=== PATIENT | female | born 1990 | race Caucasian/White ===

== ENCOUNTER 2016-10-17 10:54 | Emergency (ER) | payer MEDICAID ==
[~2016-10-17] VITALS: Ht 162.6 cm; Wt 54.4 kg
[~2016-10-17 10:54] MED LIST: CITA20TA7 PO; ETHI1TAB16 PO; HYDR-757 PO
--- OUTSIDE RECORDS SUMMARY | 2016-10-17 10:58 | XMS REPORT | Continuity of Care Document ---
Author Author [facility] Organization [facility] Address Unknown Phone Unavailable Care Team Providers Care Agent Ticketing Gate Name Role Phone NO, LOCAL PHYSICIAN PCP Unavailable Insurance Providers Payer Name Policy Number Subscriber Name Relationship Unknown Advance Directives Directive Response Recorded Date/Time Advance Directives No 10/09/16 6:45pm Resuscitation Status Full Code 10/09/16 6:45pm Chief Complaint and Reason for Visit Chief Complaint Lower Extremity Reason for Visit Ankle sprain Problems Active Problems Medical Problem Onset Date Status Ankle sprain Unknown Acute Medications Current Home Medications Medication Dose Units Route Directions Days/Qty Instructions Start Date Citalopram Hydrobromide 20 Mg 20 Mg Oral Daily 30 10/09/16 Ethinyl Estradiol/Drospirenone 1 Each 1 Tab Oral Daily 84 10/09/16 Hydrocodone/Acetaminophen 1 Each 1 Each Oral Every 4HRS as needed for Pain 10 10/09/16 Social History Social History Problem Response Recorded Date/Time Alcohol Use Denies Use 10/09/2016 6:45pm Recreational Drug Use No 10/09/2016 6:45pm Recent Foreign Travel No 10/09/2016 5:26pm Recent Infectious Disease Exposure No 10/09/2016 5:26pm Smoking Status Never a Smoker 10/09/2016 6:45pm Recent Hopitalizations No 10/09/2016 6:45pm Query Response Start Date Stop Date Smoking Status Never a Smoker Hospital Discharge Instructions No hospital discharge instructions. Plan of Care Discharge Date 10/09/16 7:39pm Disposition 01 HOME, SELF-CARE Condition at Discharge Stable Instructions/Education Provided Ankle Sprain (DC) Forms Provided Work Release Form Prescriptions See Medication Section Referrals NO,LOCAL PHYSICIAN - Primary Care Physician Additional Instructions/Education 1. Keep this elevated with an ice pack on it for the next 24-48 hours as much as possible 2. Use the crutches as needed for pain when walking 3. Expect pain continue for about a week. After your prescribed pain medication runs out use plain Tylenol and Motrin 4. Follow-up with your doctor at the end of next week if you're having persistent pain All discharge instructions reviewed with patient and/or family. Voiced understanding. Functional Status No functional status results. Allergies, Adverse Reactions, Alerts No known allergies. Immunizations No immunization records. Vital Signs Acute Vital Signs Vital Response Date/Time Temperature (Fahrenheit) 96.6 degrees F (97.6 - 99.5) 10/09/2016 5:26pm Temperature (Calculated Celsius) 35.32704 degrees C (36.4 - 37.5) 10/09/2016 5:26pm Temperature Source Tympanic 10/09/2016 5:26pm Pulse Rate (adult) 80 bpm (60 - 90) 10/09/2016 5:26pm Respiratory Rate 16 bpm (12 - 24) 10/09/2016 5:26pm Blood Pressure 106/63 mm Hg 10/09/2016 5:26pm Blood Pressure Mean 77 mm Hg 10/09/2016 5:26pm Pain Numeric Pain Scale 6 10/09/2016 7:32pm Height (Feet) 5 feet 10/09/2016 5:26pm Height (Inches) 4 inches 10/09/2016 5:26pm Height (Calculated Centimeters) 162.826879 cm 10/09/2016 5:26pm Weight (Pounds) 120 pounds 10/09/2016 5:26pm Weight (Calculated Kilograms) 54.539777 kilograms 10/09/2016 5:26pm Capillary Refill Capillary Refill Less Than 3 Seconds 10/09/2016 5:26pm Height 5 ft 4 in Weight 120 lb Body Mass Index 20.6 kg/m^2 Results No known relevant diagnostic tests, laboratory data and/or discharge summary. Procedures No known history of procedures. Encounters Encounter Location Arrival/Admit Date Discharge/Depart Date Attending Provider Departed Emergency Room [facility] 10/09/16 4:42pm 10/09 7:39pm ALICIA RUANO APRN Recent Diagnosis
--- NOTE | 2016-10-17 11:46 | Diagnostic Imaging Report ---
INDICATION: Ankle pain Comparison: October 09, 2016 Technique: 3 radiographs of the right ankle dated October 17, 2016 Findings: No evidence of acute fracture or dislocation. No destructive osseous process. Talar dome is unremarkable. Ankle mortise is symmetric. Mild soft tissue swelling, slightly improved from the prior examination. IMPRESSION: Soft tissue swelling about the ankle, particularly laterally. This appears improved from the prior examination. No acute osseous abnormality. Dictated by: Dictated on workstation # [id number]
--- NOTE | 2016-10-17 12:01 | ED Lower Extremity ---
General Chief Complaint: Lower Extremity Stated Complaint: R ANKLE PAIN/SWELLING Nursing Triage Note: ON OCT 09 SPRAINED R ANKLE WAS GIVEN GIOVANI AND CRUTCHES AND TOLD TO FOLLOW UP WITH PCP IF NOT ANY BETTER BACK HERE BECAUSE CON'T TO HAVE PAIN WHEN WALKING. AND NO PCP TO FOLLOW UP WITH. Nursing Sepsis Screen: No Definite Risk Source: patient Exam Limitations: no limitations History of Present Illness Time seen by provider: 12:01 Initial Comments 25 yo female patient presents to the emergency department for f/u of rt ankle sprain. Patient was seen October 09 in the emergency department with diagnosis of ankle sprain. Patient reports continued swelling. Denies reinjury. States she has been using her crutches and Giovani wrap. Does not have a primary care physician. Onset: last week Pain/Injury Location: right ankle Method of Injury: twisted Allergies and Home Medications Allergies Coded Allergies: No Known Drug Allergies (Unverified , 10/09/16) Home Medications Citalopram Hydrobromide 20 Mg Tablet #30 20 MG PO DAILY (Reported) Ethinyl Estradiol/Drospirenone 1 Each Tablet #84 1 TAB PO DAILY (Reported) Hydrocodone/Acetaminophen 1 Each Tablet #10 1 EACH PO Q4H PRN PRN PAIN Prescribed by: ALICIA RUANO on 10/09/161931 Constitutional: no symptoms reported Respiratory: no symptoms reported Cardiovascular: no symptoms reported Musculoskeletal: see HPI joint pain (rt ankle) joint swelling (rt ankle) Skin: change in color (rt ankle ecchymosis.) Psychiatric/Neurological: Denies Numbness, Denies Paresthesia, Denies Tingling , Denies Weakness All Other Systems Reviewed Negative Unless Noted: Yes (Negative excepted noted.) Past Woxnyft-Qnwfss-Wfarkn Hx Patient Social History Recent Foreign Travel: No Contact w/Someone Who Travel: No Recent Infectious Disease Expo: No Recent Hopitalizations: No Seasonal Allergies Seasonal Allergies: No Surgeries HX Surgeries: No Respiratory Hx Respiratory Disorders: No Cardiovascular Hx Cardiac Disorders: No Neurological Hx Neurological Disorders: No Gastrointestinal Hx Gastrointestinal Disorders: No Musculoskeletal Hx Musculoskeletal Disorders: Yes (recent rt ankle sprain.) Reviewed Nursing Assessment Reviewed/Agree w Nursing PMH: Yes Family Medical History Significant Family History: No Pertinent Family Hx Physical Exam Vital Signs Vital Sign - Last 12Hours 10/17/16 11:04 Temp 98.1 Pulse 86 Resp 18 B/P 119/79 Pulse Ox 98 O2 Delivery Room Air Capillary Refill : Less Than 3 Seconds General Appearance: WD/WN no apparent distress Cardiovascular: normal peripheral pulses no edema Knees: bilateral knee non-tender, bilateral knee normal inspection, bilateral knee normal range of motion, bilateral knee no evidence of injury Ankles: left ankle non-tender, left ankle normal inspection, left ankle normal range of motion, left ankle no evidence of injury, right ankle limited range of motion, right ankle pain, right ankle soft tissue tenderness, right ankle swelling Feet: bilateral foot non-tender, bilateral foot normal inspection, bilateral foot normal range of motion, bilateral foot no evidence of injury Neurologic/Tendon: normal sensation normal motor functions normal tendon functions responds to pain no evidence tendon injury Neurologic/Psychiatric: no motor/sensory deficits alert normal mood/affect oriented x 3 Skin: normal color warm/dry ecchymosis ((rt lateral ankle)) Progress/Results/Core Measures Results/Orders My Orders Orders-DON MARIEE Ankle, Right, 3 Views (10/17/16 11:28) Vital Signs/I&O Vital Sign - Last 12Hours 10/17/16 11:04 Temp 98.1 Pulse 86 Resp 18 B/P 119/79 Pulse Ox 98 O2 Delivery Room Air Blood Pressure Mean: 92 Diagnostic Imaging Diagonstic Imaging: Xray Plain Films/CT/US/NM/MRI: ankle (rt) Comments Findings: No evidence of acute fracture or dislocation. No destructive osseous process. Talar dome is unremarkable. Ankle mortise is symmetric. Mild soft tissue swelling, slightly improved from the prior examination. IMPRESSION: Soft tissue swelling about the ankle, particularly laterally. This appears improved from the prior examination. No acute osseous abnormality. Dictated on workstation # [id number] Reviewed: Reviewed by Me (radiology report reviewed by me) Departure Communication Progress Notes Diagnostic findings discussed with the patient. Plan for discharge to home. Patient reports she still has hydrocodone at home. Refuses pain medication at this time. Return precautions were discussed with the patient. Patient voices understanding and agrees with the treatment plan. Patient case discussed with Dr. Stanley, he agrees with the plan of care. Impression Impression: Primary Impression: Ankle sprain Qualified Code: S93.411D - Sprain of calcaneofibular ligament of right ankle, subsequent encounter Disposition: HOME, SELF-CARE Condition: Improved Departure-Patient Inst. Decision time for Depature: 12:09 Referrals: NO,LOCAL PHYSICIAN (PCP/Family) Primary Care Physician Patient Instructions: Ankle Sprain (DC) Add. Discharge Instructions: All discharge instructions reviewed with patient and/or family. Voiced understanding. Continue home medications. Ibuprofen 800 mg by mouth every 8 hours as needed for pain. Alternate ice packs and heating pad as needed for pain. Activity as tolerated. Giovani wrap as instructed. Follow-up with your primary care of choice if no improvement in symptoms. Return to the emergency department for worsened symptoms or any other concerns. Scripts [ASO ankle brace] No Conflict Check #1 EA XX NEEDED PRN PAIN Ref 0 Prov:DON MARIEE 10/17/16 Work/School Note: Local Medical Staff Listing DON MARIEE Oct 17, 2016 12:01
[2016-10-17] MEDS ORDERED: [UNRECOGNIZED DRUG - SUPPLY] XX (12:13)
[2016-10-17 12:20] VITALS: BP 119/79
== END 2016-10-17 12:19 | disposition home or self-care (01) ==
LOC: EDUNIT# 10:54 → ER 10:55
DX: S93.401D Sprain of unspecified ligament of right ankle, subsequent encounter (principal)
CPT/HCPCS: 73610

== ENCOUNTER 2020-02-24 21:12 | Outpatient (CLI) | payer BC ==
[~2020-02-24] VITALS: Ht 165.6 cm; Wt 64.9 kg
[~2020-02-24 21:12] MED LIST changes: -CITA20TA7 PO; +CITA20TA9 PO; +HYDR-4226 PO; -HYDR-757 PO; +[UNRECOGNIZED DRUG - SUPPLY] XX
--- NOTE | 2020-02-24 21:20 | NUR ---
CONSTANCEBARB Kong presented to unit via AMBULATION from HOME/ED, accompanied by SO, with c/o DECREASED MOVEMENT. BARB NOLASCO Dilan weighed, gowned, voided, and to bed. EFHM and TOCO applied, VS taken. TERESA NOLASCOA Dilan oriented to bed controls, call light, TV, heat, and A/C controls.
[2020-02-24] MEDS ORDERED: BUSP10TA95 PO (21:35)
[2020-02-24] MEDS ORDERED: PREN-142 PO (21:35)
[2020-02-24 21:40] VITALS: BP 103/72
[2020-02-24 21:41] VITALS: BP 103/72
--- NOTE | 2020-02-24 21:58 | NUR ---
D/C instructions given & explained, pt. verbalized understanding & signed, copy of D/C instructions to pt. Pt. left WS ambulatory, to home via private vehicle escorted by SO.
--- NOTE | 2020-02-25 09:13 | Physician Query-Final Dx ---
Clinic Account Progress/Dx Physician Query: Please give diagnosis Please include # weeks gestation Date of Service February 24, 2020 at 21:12 SKY MARI February 25, 2020 09:13
== END 2020-02-24 21:58 | disposition home or self-care (01) ==
LOC: LDRP 21:12 → WSo 21:12
PROVIDERS: ATTEND Obstetrics & Gynecology
DX: O36.8120 Decreased fetal movements, second trimester, not applicable or unspecified (principal); Z3A.26 26 weeks gestation of pregnancy
CPT/HCPCS: 99212

== ENCOUNTER 2020-04-19 15:56 | Outpatient (CLI) | payer BC ==
[~2020-04-19 15:56] MED LIST changes: +BUSP10TA95 PO; +PREN-142 PO
--- NOTE | 2020-04-19 16:05 | NUR ---
BARB NOLASCO presented to unit via from ED, accompanied by s/o, with c/o LEAKING FLUID. BARB NOLASCO weighed, gowned, voided, and to bed. EFHM and TOCO applied, VS taken. BARB NOLASCO oriented to bed controls, call light, TV, heat, and A/C controls.
[2020-04-19 16:28] VITALS: BP 113/72
--- NOTE | 2020-04-19 16:41 | NUR ---
DR. ZHONG NOTIFIED OF PT'S ARRIVAL, C/O, AMNIO NEGATIVE, SVE, REVIEW OF STRIP, URINE DIPSTICK RESULTS. ORDERS RECEIVED FOR DISCHARGE HOME AND TO KEEP APPOINTMENT FOR NEXT WEEK.
--- NOTE | 2020-04-19 16:49 | NUR ---
DISCHARGE PAPERS PROVIDED AND REVIEWED WITH PT AND S/O. PT VERBALIZES UNDERSTANDING AND DENIES ANY QUESTIONS AT THIS TIME. PAPER SIGNED.
--- NOTE | 2020-04-19 16:55 | NUR ---
PT DISCHARGED FROM [facility] TO [facility]IA AMBULATORY IN STABLE CONDITION ACC BY S/O.
--- NOTE | 2020-04-21 08:27 | Physician Query-Final Dx ---
SKY MARI 04/21/20 0827: Clinic Account Progress/Dx Physician Query: Please give diagnosis Please include # weeks gestation Date of Service Apr 19, 2020 at 15:56 JOSEPH HZONG DO 04/21/20 1235: Clinic Account Progress/Dx Physician Query: Please give diagnosis DIAGNOSIS: Diagnosis Intrauterine at 35 5/7 weeks 2. Leaking Fluid 3. Threatened Labor SKY MARI Apr 21, 2020 08:27 JOSEPH ZHONG DO Apr 21, 2020 12:35
== END 2020-04-19 16:55 | disposition home or self-care (01) ==
LOC: LDRP 15:56 → WSo 15:56
PROVIDERS: ATTEND Obstetrics & Gynecology
DX: O42.913 Preterm premature rupture of membranes, unspecified as to length of time between rupture and onset of labor, third trimester (principal); O47.03 False labor before 37 completed weeks of gestation, third trimester; Z3A.35 35 weeks gestation of pregnancy
CPT/HCPCS: 99214

== ENCOUNTER 2020-05-01 21:39 | Outpatient (CLI) | payer BC ==
[~2020-05-01] VITALS: Ht 162.6 cm; Wt 67.0 kg
--- NOTE | 2020-05-01 21:45 | NUR ---
BARB NOLASCO presented to unit via ambulation from ED, accompanied by , with c/o CONTRACTIONS. BARB NOLASCO weighed, gowned, voided, and to bed. EFHM and TOCO applied, VS taken. BARB NOLASCO oriented to bed controls, call light, TV, heat, and A/C controls.
[2020-05-01 22:09] LABS: BILIRUBIN,URINE NEGATIVE (NEGATIVE); CLARITY,URINE CLEAR; COLOR,URINE YELLOW; GLUCOSE, URINE (UA) NEGATIVE (NEGATIVE); KETONES,URINE NEGATIVE (NEGATIVE); LEUKOCYTE ESTERASE ,URINE TRACE (NEGATIVE); NITRITE,URINE NEGATIVE (NEGATIVE); PH,URINE 8.5 (5-9); PROTEIN,URINE NEGATIVE (NEGATIVE)
[2020-05-01 22:17] LABS: AMORPHOUS SEDIMENT,UR FEW AMOR PHOSPHATE /LPF; BACTERIA,URINE TRACE /HPF
[2020-05-01 22:54] VITALS: BP 117/75
--- NOTE | 2020-05-01 23:17 | NUR ---
Discharge instructions discussed with pt and s.o. Pt denies any questions or concerns. Signature sheet signed, placed on chart. Offered wheelchair, denied per pt. Pt ambulating off unit at time to private vehicle with s.o. at side. No signs of distress noted.
== END 2020-05-01 23:17 | disposition home or self-care (01) ==
LOC: LDRP 21:39 → WSo 21:39
PROVIDERS: ATTEND Obstetrics & Gynecology
DX: O62.9 Abnormality of forces of labor, unspecified (principal); Z3A.37 37 weeks gestation of pregnancy
CPT/HCPCS: 81000; G0463; 99213

== ENCOUNTER 2020-05-05 12:48 | Inpatient (IN) | payer BC ==
[2020-05-05] VITALS (27 sets, daily range): BP systolic 98–132; BP diastolic 54–86
[~2020-05-05] VITALS: Ht 162 cm; Wt 67.4 kg
--- NOTE | 2020-05-05 12:52 | NUR ---
BARB NOLASCO presented to unit via from ED, accompanied by S/O, with c/o CONTRACTIONS. BARB NOLASCO weighed, gowned, voided, and to bed. EFHM and TOCO applied, VS taken. BARB NOLASCO oriented to bed controls, call light, TV, heat, and A/C controls.
[2020-05-05 13:32] LABS: BILIRUBIN,URINE NEGATIVE (NEGATIVE); CLARITY,URINE CLEAR; COLOR,URINE YELLOW; GLUCOSE, URINE (UA) NEGATIVE (NEGATIVE); KETONES,URINE 1+ (NEGATIVE); LEUKOCYTE ESTERASE ,URINE TRACE (NEGATIVE); NITRITE,URINE NEGATIVE (NEGATIVE); PROTEIN,URINE NEGATIVE (NEGATIVE)
[2020-05-05 13:41] LABS: BACTERIA,URINE TRACE /HPF
--- NOTE | 2020-05-05 14:22 | NUR ---
DR. ZHONG NOTIFIED OF PT'S ARRIVAL, C/O, SVE X2, REVIEW OF STRIP. NEW ORDERS RECEIVED AND WILL BE IN TO SEE PT LATER THIS AFTERNOON.
[2020-05-05] MEDS ORDERED: D5 LR IV SOLUTION 1,000 ML IV ONE (15:19)
[2020-05-05] MEDS ORDERED: OXYTOCIN PRE-MIX DRIP 500 ML IV ONE (15:19)
[2020-05-05] MEDS ORDERED: D5 LR IV SOLUTION 1,000 ML IV SCH (15:40)
[2020-05-05] MEDS ORDERED: AMPICILLIN FOR IV USE 2,000 MG in WATER (STERILE) FOR INJECTION 14.8 ML IV SCH (15:40)
[2020-05-05] MEDS ORDERED: LACTATED RINGERS 1,000 ML IV SCH (15:45)
--- NOTE | 2020-05-05 15:54 | History & Physical-OB/GYN ---
History of Present Illness History of Present Illness Reason for visit/HPI Ms. Reynoso, A1 at 38 weeks gestation presented to the hospital with the onset of contractions. Date of Admission May 05, 2020 Date Seen by a Provider: May 05, 2020 Time Seen by a Provider: 15:40 I consulted on this patient on 05/05/20 15:47 Attending Physician Luis Miguel Gibbons DO Admitting Physician Luis Miguel Gibbons DO Consult Allergies and Home Medications Allergies Coded Allergies: No Known Drug Allergies (Unverified , 10/09/16) Home Medications Buspirone HCl 10 Mg Tablet, 10 MG PO BID, (Reported) Vit No.124/Iron/FA 1 Each Tablet, 1 EACH PO DAILY, (Reported) Patient Home Medication List Home Medication List Reviewed: Yes Past Jpuzedt-Llbbxe-Fzgdrd Hx Patient Social History Marrital Status: single Number of Children: 3 Number of living children: 3 Employed/Student: employed Alcohol Use: Denies Use Recreational Drug Use: No Smoking Status: Never a Smoker 2nd Hand Smoke Exposure: No Recent Foreign Travel: No Contact w/other who traveled: No Recent Hopitalizations: No Seasonal Allergies Seasonal Allergies: No Surgeries No Respiratory No Cardiovascular No Neurological No Reproductive System Expected Date of Delivery: May 19, 2020 Hx : 5 Hx Para: 3 Hx Total # of Abortions (Spona: 1 Genitourinary No Gastrointestinal No Musculoskeletal No Endocrine History of Endocrine Disorders: No HEENT History of HEENT Disorders: No Cancer No Psychosocial History of Psychiatric Problem: Yes Behavioral Health Disorders: Depression Integumentary History of Skin or Integumenta: No Blood Transfusions History of Blood Disorders: No Family Medical History Significant Family History: No Pertinent Family Hx Review of Systems Constitutional: see HPI Physical Exam Physical Exam Vital Signs Vital Signs Date Time Temp Pulse Resp B/P (MAP) Pulse Ox O2 Delivery O2 Flow Rate FiO2 05/05/20 14:11 37.1 97 18 100 Room Air 05/05/20 14:00 37.1 97 18 100 Room Air 05/05/20 13:11 37.1 97 18 112/78 (89) 100 Room Air Capillary Refill : Less Than 3 Seconds Labs Laboratory Tests 05/05/20 13:15: Urine Color YELLOW, Urine Clarity CLEAR, Urine pH 8.0, Urine Specific [place] 1.015L, Urine Protein NEGATIVE, Urine Glucose (UA) NEGATIVE, Urine Ketones 1+H, Urine Nitrite NEGATIVE, Urine Bilirubin NEGATIVE, Urine Urobilinogen 0.2, Urine Leukocyte Esterase TRACEH, Urine RBC (Auto) TRACE-L, Urine RBC 5-10H, Urine WBC 2-5, Urine Squamous Epithelial Cells 2-5, Urine Crystals NONE, Urine Bacteria TRACE, Urine Casts NONE, Urine Mucus NEGATIVE, Urine Culture Indicated NO General Appearance: No Apparent Distress Respiratory: Chest Non Tender, Lungs Clear, Normal Breath Sounds Cardiovascular: Regular Rate, Rhythm, No Edema Abdominal: normal bowel sounds, non tender, soft Labia: WNL Vagina: WNL Cervix: WNL Cervix OS: open (Cervix 1.5 cm/90%/-3 Vertex/Intact) Uterus: WNL, Enlarged (Gravid) Extremity: Normal Inspection, Non Tender, No Calf Tenderness Assessment/Plan Assessment and Plan Assessment: Intrauterine at 38 weeks--onset of labor 2. GBS Positive Plan: Augment labor with Pitocin. AROM. Ampicillin IV for GBS prophylaxis. Epidural for antepartum pain management. Admission Diagnosis Admission Status: Inpatient Order (span 2 midnights) Reason for Inpatient Admission: Active labor--vaginal delivery expected LUIS MIGUEL GIBBONS DO May 05, 2020 15:54
[2020-05-05 16:08] LABS: BASOPHILS % (AUTO) 0 % (0-10); EOSINOPHILS # (AUTO) 0.1 10^3/uL (0.0-0.3); EOSINOPHILS % (AUTO) 1 % (0-10); HEMATOCRIT 27 % (35-52); HEMOGLOBIN 8.6 G/DL (11.5-16.0); LYMPHOCYTES # (AUTO) 1.7 X 10^3 (1.0-4.0); LYMPHOCYTES % (AUTO) 18 % (12-44); MEAN CORPUSCULAR HEMOGLOBIN 25 PG (25-34); MEAN CORPUSCULAR HGB CONC 32 G/DL (32-36); MEAN CORPUSCULAR VOLUME 78 FL (80-99); MEAN PLATELET VOLUME 9.9 FL (7.4-10.4); MONOCYTES # (AUTO) 0.8 X 10^3 (0.0-1.0); MONOCYTES % (AUTO) 8 % (0-12); NEUTROPHILS # (AUTO) 7.2 X 10^3 (1.8-7.8); NEUTROPHILS % (AUTO) 73 % (42-75); PLATELET COUNT 320 10^3/uL (130-400); RED CELL DISTRIBUTION WIDTH 13.7 % (10.0-14.5); WHITE BLOOD COUNT 9.8 10^3/uL (4.3-11.0)
[2020-05-05] MEDS ORDERED: fentaNYL 2 mcg/ml BUPIVA 0.125 100 ML ONE (16:20)
[2020-05-05] MEDS ORDERED: fentaNYL INJECTION 100 MCG/2 ML AMP ONE (16:25)
[2020-05-05] MEDS ORDERED: LACTATED RINGERS 1,000 ML IV ONE ×2 (16:26)
[2020-05-05] MEDS ORDERED: EPIDURAL (fentaNYL 2 MCG/ML BUPIVA 0.125%)100 ML BAG EPI PRN (16:30)
[2020-05-05] MEDS ORDERED: ONDANSETRON 4 MG/2 ML (SDV) Z0FRAN IV PRN (16:30)
[2020-05-05] MEDS ORDERED: NALOXONE 0.4 MG/ML 1 ML (NARCAN) VIAL IV PRN (16:30)
[2020-05-05] MEDS ORDERED: WATER (STERILE) FOR INJECTION 20 ML ONE (16:30)
[2020-05-05] MEDS ORDERED: BUPIVACAINE 0.25% 30 ML (SENSORCAINE) VIAL ONE (16:47)
[2020-05-05] MEDS ORDERED: LIDOCAINE PF 2% 5 ML (XYLOCAINE) VIAL ONE (16:47)
[2020-05-05] MEDS ORDERED: OXYTOCIN PRE-MIX DRIP 500 ML IV SCH (18:10)
[2020-05-05] MEDS ORDERED: MEASLES,MUMPS,RUBELLA 1 EA INJ SQ ONE (18:15)
[2020-05-05] MEDS ORDERED: WITCH HAZEL(TUCKS) 40 EA JAR TOP PRN (18:15)
[2020-05-05] MEDS ORDERED: TETANUS,DIPTH,PERTUSS P/F (BOOSTRIX) 0.5 ML VIAL IM ONE (18:15)
[2020-05-05] MEDS ORDERED: BENZOCAINE/MENTHOL (DERMOPLAST) 60 ML CAN TP PRN (18:15)
[2020-05-05] MEDS ORDERED: DIBUCAINE (NUPERCAINAL) 1% OINT 30 GM TOP PRN (18:15)
--- NOTE | 2020-05-05 18:17 | OB Labor & Delivery Record ---
Vag Delivery Note Vag Delivery Note Date of Delivery: 05/05/20 Preoperative Diagnosis: Lois Reynoso is a (29 /Para 5 / 3, Gestational Age (wks)38 and GBS Positive Postoperative Diagnosis: Same Surgeon: JOSEPH ZHONG Bezel Cutter: [None] Anesthesia: [Epidural] Delivery Type: [Normal Spontaneous Vaginal Delivery] Findings: [A female in CJ position] Viable [female] infant, apgars [7, 8], weight [6 lbs 1 oz] Lacerations: None Intact placenta with 3 vessel cord. No nuchal cord, body cord or shoulder dystocia Estimated Blood Loss: [300] ml Complications: Tight nuchal cord x 1, doubly clamped and cut Condition: Stable Description of Procedure: The patient is a 29 year old female who presented [with the onset of contractions]. She was admitted and informed consent was obtained. Her labor course was remarkable for [Pitocin Augmentation and AROM] She progressed to complete dilatation and began to push. She was then set up for delivery. The 's head was delivered atraumatically in the [CJ] position. Tight Nuchal Cord was noted--doubly clamped and cut. The shoulders and remainder of the infant's body were then delivered without difficulty. Upon delivery, the head was held below the level of the perineum and the mouth and nares were bulb suctioned. The infant was handed off to the pediatric staff where NRP protocol was followed. An intact placenta with 3- vessel cord delivered via Augie and there was found to be minimal bleeding.~ Vigorous fundal massage was performed and the fundus was found to be firm. IV oxytocin was given. Examination of the vagina and perineum revealed no lacerations. Following the repair, sponge, instrument and needle counts were correct. Mom and baby were both in stable condition in the labor suite. Vitals - Labs Vital Signs - I&O Vital Signs Date Time Temp Pulse Resp B/P (MAP) Pulse Ox O2 Delivery O2 Flow Rate FiO2 05/05/20 14:11 37.1 97 18 100 Room Air 05/05/20 14:00 37.1 97 18 100 Room Air 05/05/20 13:11 37.1 97 18 112/78 (89) 100 Room Air Labs Laboratory Tests 05/05/20 13:15: Urine Color YELLOW, Urine Clarity CLEAR, Urine pH 8.0, Urine Specific [place] 1.015L, Urine Protein NEGATIVE, Urine Glucose (UA) NEGATIVE, Urine Ketones 1+H, Urine Nitrite NEGATIVE, Urine Bilirubin NEGATIVE, Urine Urobilinogen 0.2, Urine Leukocyte Esterase TRACEH, Urine RBC (Auto) TRACE-L, Urine RBC 5-10H, Urine WBC 2-5, Urine Squamous Epithelial Cells 2-5, Urine Crystals NONE, Urine Bacteria TRACE, Urine Casts NONE, Urine Mucus NEGATIVE, Urine Culture Indicated NO 05/05/20 15:59: White Blood Count 9.8, Red Blood Count 3.46L, Hemoglobin 8.6L, Hematocrit 27L, Mean Corpuscular Volume 78L, Mean Corpuscular Hemoglobin 25, Mean Corpuscular Hemoglobin Concent 32, Red Cell Distribution Width 13.7, Platelet Count 320, Mean Platelet Volume 9.9, Neutrophils (%) (Auto) 73, Lymphocytes (%) (Auto) 18, Monocytes (%) (Auto) 8, Eosinophils (%) (Auto) 1, Basophils (%) (Auto) 0, Neutrophils # (Auto) 7.2, Lymphocytes # (Auto) 1.7, Monocytes # (Auto) 0.8, Eosinophils # (Auto) 0.1, Basophils # (Auto) 0.0 JOSEPH ZHONG DO May 05, 2020 18:17
--- NOTE | 2020-05-05 19:10 | NUR ---
REPORT RECEIVED AND CARES RESUMED BY THIS NURSE.
--- NOTE | 2020-05-05 19:25 | NUR ---
COMPLETE SHIFT ASSESSMENT DONE. VSS. PT DENIES ANY PAIN. LOCHIA LIGHT. PT HAS FOOD BEING DELIVERED AND WILL BE READY TO MOVE AFTER EATING.
[2020-05-05] MEDS: IBUPROFEN 800 MG (MOTRIN) TAB PO SCH (19:38)
[2020-05-05] MEDS ORDERED: AMPICILLIN FOR IV USE 1,000 MG in WATER (STERILE) FOR INJECTION 7.4 ML IV SCH (19:45)
--- NOTE | 2020-05-05 20:18 | NUR ---
EPIDURAL CATH REMOVED EASILY WITH TIP INTACT. PT DENIES ANY PAIN OR C/O'S.
--- NOTE | 2020-05-05 20:20 | NUR ---
PT IVF D/C'D AND IV TO SALINE LOCK. UP AND OUT OF BED AMB TO BATHROOM. PT VOIDS AND PERICARE COMPLETED. LOCHIA LIGHT. PT DOES VERY WELL.
--- OUTSIDE RECORDS SUMMARY | 2020-05-05 20:29 | XMS REPORT ---
Author Lois Chaparro Organization [employer] Address Unknown Phone Unavailable Care Team Providers Care Playground Director Name Role Phone JOSE GODINEZ CP Unavailable Allergies, Adverse Reactions, Alerts Substance Reaction Event Type N.K.D.A. Info Not Available Non Drug Allergy Problems Problem Type Condition Code Onset Dates Condition Statu s Assessment Irregular menses N92.6 Active Medications Medication Code System Code Instructions Start Date End Date Status Dosage Citalopram Hydrobromide [facility] [id number] 20 MG Orally Once a day 1 tablet Procedures Procedure Coding System Code Date COMPREHEN METABOLIC PANEL CPT-4 89193 Jul ASSAY THYROID STIM HORMONE CPT-4 30997 Jul COMPLETE CBC W/AUTO DIFF WBC CPT-4 42217 Jul 14, 2015 URINE TEST CPT-4 78279 Jul 14, 201 5 VENIPUNCT, ROUTINE* CPT-4 19419 Jul 14, 2015 GONADOTROPIN (LH) CPT-4 80098 Jul 14, 2015 ASSAY OF PROLACTIN CPT-4 72999 Jul 14, 2015 Office Visit, Est Pt., Level 4 CPT-4 80876 O 2014 GONADOTROPIN (F[facility]) CPT-4 45430 Jul 14, 2015 Vital Signs Date/Time: Jul 14, 2015 Temperature 97.0 F Weight 123.1 lbs Height 5'4" in BMI 21.13 Index Blood Pressure Diastolic 70 mmHg Blood Pressure Systolic 112 mmHg Cardiac Monitoring Heart Rate 72 bpm Results Name Result Date Reference Range Unit Abnormali ty Flag ROUTINE VENIPUNCTURE Summary Purpose [employer] Submission
--- NOTE | 2020-05-05 20:35 | NUR ---
PT TO ROOM BY W/C IN STABLE CONDITION. PT DENIES ANY NEEDS AT THIS TIME. ORIENTED TO ROOM AND SURROUNDINGS. BABY PAPER PACKET REVIEWED.
[2020-05-05] MEDS: ACETAMINOPHEN 500 MG TAB (TYLENOL) PO SCH (21:47)
[2020-05-05] MEDS: DOCUSATE SODIUM 100 MG (COLACE) CAP PO SCH (21:47)
[2020-05-05] MEDS ORDERED: CATHETER FLUSH 10 ML SYR IV SCH ×2 (22:00)
[2020-05-06 00:10] VITALS: BP 110/74
[2020-05-06] MEDS ORDERED: CALCIUM CARBONATE 500 MG (TUMS) TAB.CHEW PO PRN (00:15)
[2020-05-06 04:22] VITALS: BP 111/75
[2020-05-06] MEDS: IBUPROFEN 800 MG (MOTRIN) TAB PO SCH ×2 (04:22→12:23)
[2020-05-06] MEDS: ACETAMINOPHEN 500 MG TAB (TYLENOL) PO SCH ×3 (04:22→16:06)
[2020-05-06 05:26] LABS: BASOPHILS % (AUTO) 0 % (0-10); EOSINOPHILS # (AUTO) 0.1 10^3/uL (0.0-0.3); EOSINOPHILS % (AUTO) 1 % (0-10); HEMATOCRIT 29 % (35-52); LYMPHOCYTES # (AUTO) 2.7 X 10^3 (1.0-4.0); LYMPHOCYTES % (AUTO) 23 % (12-44); MEAN CORPUSCULAR HEMOGLOBIN 25 PG (25-34); MEAN CORPUSCULAR HGB CONC 32 G/DL (32-36); MEAN CORPUSCULAR VOLUME 78 FL (80-99); MEAN PLATELET VOLUME 9.8 FL (7.4-10.4); MONOCYTES # (AUTO) 1.4 X 10^3 (0.0-1.0); MONOCYTES % (AUTO) 12 % (0-12); NEUTROPHILS # (AUTO) 7.4 X 10^3 (1.8-7.8); NEUTROPHILS % (AUTO) 64 % (42-75); PLATELET COUNT 329 10^3/uL (130-400); RED CELL DISTRIBUTION WIDTH 13.7 % (10.0-14.5); WHITE BLOOD COUNT 11.6 10^3/uL (4.3-11.0)
[2020-05-06] MEDS ORDERED: DCS100C PO (06:25)
[2020-05-06] MEDS ORDERED: IBUP-1780 PO (06:25)
[2020-05-06] MEDS ORDERED: ACET-93 PO (06:25)
[2020-05-06] MEDS ORDERED: OXYC5TAB96 PO (06:25)
--- NOTE | 2020-05-06 06:30 | Discharge Summary ---
Diagnosis/Chief Complaint Date of Admission May 05, 2020 at 17:30 Date of Discharge May 06, 2020 Discharge Date: May 06, 2020 Discharge Time: 18:30 Admission Diagnosis Admission Diagnosis Intrauterine at 38 weeks 2. GBS Positive Discharge Diagnosis Intrauterine at 38 weeks--delivered 2. GBS Positive Reason Hospital Visit Ms. Reynoso, A1 at 38 weeks gestation presented to the hospital with the onset of contractions. Discharge Summary Hospital Course Was the Problem List Reviewed?: Yes Hospital Course Dacia Rivera at 38 weeks gestation, presented to the hospital with the onset of contractions Her labor was augmented with Pitocin and AROM. She received Ampicillin for GBS prophylaxis. She progressed to complete, delivered a healthy viable female infant. The remainder of her hospitalization was unremarkable. Her vital signs remained stable. She will be discharged to home with instructions, prescriptions, and a follow up appointment. Labs Laboratory Tests 05/05/20 13:15: Urine Specific Jackson 1.015L, Urine Ketones 1+H, Urine Leukocyte Esterase TRACEH, Urine RBC 5-10H 05/05/20 15:59: Red Blood Count 3.46L, Hemoglobin 8.6L, Hematocrit 27L, Mean Corpuscular Volume 78L 05/06/20 04:55: Red Blood Count 3.65L, Hemoglobin 9.0L, Hematocrit 29L, Mean Corpuscular Volume 78L, White Blood Count 11.6H, Monocytes # (Auto) 1.4H Procedures None. Discharge Physical Examination Allergies: Coded Allergies: No Known Drug Allergies (Unverified , 10/09/16) Vitals & I&Os Vital Signs Date Time Temp Pulse Resp B/P (MAP) Pulse Ox O2 Delivery O2 Flow Rate FiO2 05/06/20 04:22 37.0 81 16 111/75 (87) 98 Room Air General Appearance: Alert, Oriented X3, Cooperative HEENT: Atraumatic Respiratory: Clear to Auscultation, Normal Air Movement Cardiovascular: Regular Rate, No Murmurs Abdominal: Normal Bowel Sounds, Soft Extremities: No Clubbing, No Cyanosis Skin: No Rashes Neuro: Normal Gait, Normal Speech Psych/Mental Status: Mental Status NL Discharge Home Medications Reviewed and agree with Discharge Medication list on patient's Discharge Instruction sheet Instructions to Patient/Family Please see electronic discharge instructions given to patient. Clinical Quality Measures DVT/VTE Risk/Contraindication: Risk Factor Score Per Nursin RFS Level Per Nursing on Admit: 1=Low/No VTE PPX JOSEPH ZHONG DO May 06, 2020 06:30
[2020-05-06] MEDS ORDERED: PRENATAL VITAMIN 1 EA TAB PO SCH (07:00)
[2020-05-06 09:00] VITALS: BP 110/81
--- NOTE | 2020-05-06 09:00 | NUR ---
A.M. ASSESSMENT COMPLETED. VSS. CARING FOR IN ROOM. GOOD INTERACTION NOTED.
[2020-05-06] MEDS: DOCUSATE SODIUM 100 MG (COLACE) CAP PO SCH (09:10)
[2020-05-06] MEDS ORDERED: FAMOTIDINE 20 MG (PEPCID) TABLET PO PRN (09:15)
--- NOTE | 2020-05-06 09:20 | Anesthesia-Regional Post-Op ---
Regional Patient Condition Mental Status: Alert, Oriented x3 Circulation: Same as Pre-Op Headache: Absent Sensation: Full Recovery Motor Block: Absent Post Op Complications Complications None Follow Up Care/Instructions Patient Instructions None needed. Anesthesia/Patient Condition Patient is doing well, no complaints, stable vital signs, no apparent adverse anesthesia problems. No complications reported per nursing. ANGUS LOMBARDI CRNA May 06, 2020 09:20
[2020-05-06] MEDS ORDERED: FAMOTIDINE 20 MG (PEPCID) TABLET ONE (09:21)
--- NOTE | 2020-05-06 10:33 | NUR ---
OXYIR 5 MG P.O. FOR C/O ABD CRAMPING AND SORE BOTTOM.
[2020-05-06 12:15] VITALS: BP 110/70
--- NOTE | 2020-05-06 12:30 | NUR ---
VSS. CONTINUES TO DO WELL.
--- NOTE | 2020-05-06 15:29 | NUR ---
TDAP IM IN LEFT DELTOID. SITE CLEAR.
--- NOTE | 2020-05-06 16:00 | NUR ---
RHOGAM 1 VIAL IM IN LEFT VG SITE. SITE CLEAR.
[2020-05-06 17:20] VITALS: BP 123/84
--- NOTE | 2020-05-06 17:35 | NUR ---
DISCHARGE INSTRUCTIONS REVIEWED WITH COPY TO PT. STATES UNDERSTANDING OF ALL INSTRUCTIONS AND NEED TO F/U SCHEDULED AND NEEDED.
[2020-05-06 18:00] VITALS: BP 123/84
--- NOTE | 2020-05-06 18:00 | NUR ---
DISMISSED FROM WS IN STABLE CONDITION. PT WILL STAY IN ROOM A ROOMING-IN PARENT R/T INFANT UNABLE TO BE DISCHARGED AT THIS TIME.
== END 2020-05-06 18:00 | disposition home or self-care (01) | DRG 807 ==
LOC: WSo 12:48 → LDRP 12:49 → WSo 17:30 → LDRP 17:30
PROVIDERS: ADMIT Obstetrics & Gynecology; ATTEND Obstetrics & Gynecology
PROC: 10E0XZZ Delivery of Products of Conception, External Approach (ICD-10-PCS; principal; 2020-05-05)
DX: O99.824 Streptococcus B carrier state complicating childbirth (principal); Z37.0 Single live birth; Z3A.38 38 weeks gestation of pregnancy; O99.344 Other mental disorders complicating childbirth; F32.9 Major depressive disorder, single episode, unspecified; O69.1XX0 Labor and delivery complicated by cord around neck, with compression, not applicable or unspecified; Z23 Encounter for immunization
CPT/HCPCS: 36415; 81000; 83033; 85025; 86850; 86900; 86901; 90715; 99212